=== PATIENT | male | born 1990 | race Caucasian/White ===

== ENCOUNTER 2022-07-26 12:21 | Emergency (ER) | payer OTHER ==
[2022-07-26 12:34] LABS: Urine Blood Trace-intact (Negative); Urine Glucose Negative (Negative); Urine Protein 1+ (Negative); Urine Specific Gravity 1.025 (1.005-1.030)
[2022-07-26] MEDS ORDERED: ONDANSETRON 4 MG/2 ML VIAL ONE ×2 (12:47→17:40)
[2022-07-26] MEDS ORDERED: Ringers Lactate 0 ML IV ONE (12:47)
[2022-07-26 12:49] LABS: Barbiturates NEGATIVE (NEGATIVE); Benzodiazepines NEGATIVE (NEGATIVE); Cocaine NEGATIVE (NEGATIVE); METHAMPHETAM NEGATIVE (NEGATIVE); Methadone NEGATIVE (NEGATIVE); Opiates NEGATIVE (NEGATIVE); Phencyclidine NEGATIVE (NEGATIVE); THC Cannibis NEGATIVE (NEGATIVE)
[2022-07-26 14:05] LABS: Absolute Lymphocytes (CBC) 1.1 K/uL (0.7-4.9); Hematocrit 45.9 % (39.6-49.0); Lymphocytes % 8.2 % (15.3-44.8); MCV 83.7 fL (80-100); MPV 9.3 fL (7.6-11.3); RBC Red Blood Cell Count 5.48 M/uL (4.33-5.43)
[2022-07-26 14:17] LABS: Albumin 4.2 g/dL (3.4-5.0); Bilirubin Total 0.9 mg/dL (0.2-1.0); Potassium 3.6 mmol/L (3.5-5.1); Protein, Total 8.2 g/dL (6.4-8.2)
--- NOTE | 2022-07-26 14:21 | RAD REPORT ---
EXAM DESCRIPTION: CTAbdomen Pelvis W Contrast - 07/26/2022 2:13 pm CLINICAL HISTORY: Abdominal pain. abdominal pain COMPARISON: No comparisons TECHNIQUE: Biphasic CT imaging of the abdomen and pelvis was performed with 100 ml non-ionic IV cont rast. All CT scans are performed using dose optimization technique as appropriate and may include automated exposure control or mA/KV adjustment according to patient size. FINDINGS: The lung bases are clear.Small hiatal hernia. The liver, spleen, pancreas, adrenal glands and kidneys are within normal limits. No bowel obstruction, free air, free fluid or abscess. The appendix is normal. No evidence of signi ficant lymphadenopathy. No suspicious bony findings. IMPRESSION: No acute intra-abdominal or pelvic finding.
[2022-07-26] MEDS ORDERED: Ringers Lactate 1,000 ML IV ONE ×2 (14:47→15:35)
[2022-07-26] MEDS ORDERED: METOCLOPRAMIDE 10 MG/2mL INJ ONE (14:59)
[2022-07-26] MEDS ORDERED: DIPHENHYDRAMINE 50 MG/ML VIAL ONE (14:59)
[2022-07-26] MEDS ORDERED: NA CHLORIDE 0.9% 250 ML ONE (15:00)
[2022-07-26 16:37] LABS: Blood Gas Oxyhemoglobin 95.1 % (94-97); Blood O2 Saturation 97.3 % (92-98.5)
[2022-07-26] MEDS ORDERED: PROMETHAZINE INJ 25 MG/ML AMP ONE ×2 (18:10→21:50)
[2022-07-26 18:20] LABS: ALT/SGPT 20 U/L (12-78); AST/SGOT 15 U/L (15-37); Albumin 3.5 g/dL (3.4-5.0); Alkaline Phosphatase 62 U/L (45-117); BUN Blood Urea Nitrogen 8 mg/dL (7-18); Bicarbonate 20 mmol/L (21-32); Bilirubin Direct 0.1 mg/dL (0-0.2); Bilirubin Total 0.7 mg/dL (0.2-1.0); Glomerular Filtration Rate 96 ml/min (=/>90); Glucose Level 135 mg/dL (74-106); Potassium 3.6 mmol/L (3.5-5.1); Protein, Total 7.1 g/dL (6.4-8.2); Protime INR 1.03; Sodium Level 140 mmol/L (136-145)
[2022-07-26 18:58] LABS: SARS-CoV-2 Antigen Rapid Res Negative (Negative)
[2022-07-26] MEDS ORDERED: KETOROLAC 30 MG/ML INJ ONE (19:54)
--- NOTE | 2022-07-26 20:15 | ER ---
Nurse's Notes [facility] Name: Leonard Yuan Age: 31 yrs Sex: Male : 1990 Arrival Date: 07/26/2022 Time: 12:25 Bed 7 Private MD: Diagnosis: Vomiting;Dehydration Presentation: 07/26 12:32 Chief complaint: Patient states: abd pain, N/V that began yesterday. Coronavirus ss screen: Client denies travel out of the [place] in the last 14 days. Ebola Screen: Patient denies exposure to infectious person. Patient denies travel to an Ebola-affected area in the 21 days before illness onset. Initial Sepsis Screen: Does the patient meet any 2 criteria? No. Patient's initial sepsis screen is negative. Does the patient have a suspected source of infection? No. Patient's initial sepsis screen is negative. Risk Assessment: Do you want to hurt yourself or someone else? Patient reports no desire to harm self or others. Onset of symptoms was July 25, 2022. 12:32 Method Of Arrival: Law Enforcement: [place] [employer] 12:32 Acuity: KATHY 3 ss Triage Assessment: 12:30 General: Appears distressed, uncomfortable, Behavior is cooperative, appropriate for 3 age, anxious. Pain: Complains of pain in epigastric area, right upper quadrant and left upper quadrant Pain does not radiate. Pain currently is 9 out of 10 on a pain scale. Neuro: Level of Consciousness is awake, alert, obeys commands, Oriented to person, place, time, situation. Cardiovascular: Capillary refill < 3 seconds Patient's skin is warm and dry. Respiratory: Airway is patent Respiratory effort is even, labored. GI: Abdomen is round non-distended, Bowel sounds present X 4 quads. Reports upper abdominal pain, epigastric pain, nausea, vomiting, since 11pm last night. : No signs and/or symptoms were reported regarding the genitourinary system. Derm: No signs and/or symptoms reported regarding the dermatologic system. Musculoskeletal: No signs and/or symptoms reported regarding the musculoskeletal system. Historical: - Allergies: 13:23 No Known Allergies; eh3 - Home Meds: 13:23 None [Active]; eh3 - PMHx: 13:25 Hepatitis C; eh3 - PSHx: 13:25 Maxillofacial surgery; eh3 - Immunization history:: Adult Immunizations up to date. - Social history:: Smoking status: unknown Patient uses street drugs, K2. Screenin:29 Abuse screen: Denies threats or abuse. Denies injuries from another. Nutritional eh3 screening: No deficits noted. Tuberculosis screening: No symptoms or risk factors identified. Fall Risk None identified. Assessment: 13:29 Reassessment: Patient and/or family updated on plan of care and expected duration. Pain eh3 level reassessed. Patient is alert, oriented x 3, equal unlabored respirations, skin warm/dry/pink. See triage assessment. 14:30 Reassessment: Patient and/or family updated on plan of care and expected duration. Pain eh3 level reassessed. Patient is alert, oriented x 3, equal unlabored respirations, skin warm/dry/pink. 15:29 Reassessment: Patient and/or family updated on plan of care and expected duration. Pain eh3 level reassessed. Patient is alert, oriented x 3, equal unlabored respirations, skin warm/dry/pink. 19:39 General: Appears in no apparent distress. Behavior is calm, cooperative, appropriate tw5 for age, Reports "I been vomiting a lot, so my stomach just really hurts.". Pain: Complains of pain in xiphoid area and mid-sternal area Pain currently is 6 out of 10 on a pain scale. Neuro: Level of Consciousness is awake, alert, obeys commands. Respiratory: Airway is patent Trachea midline Respiratory effort is even, unlabored. GI: Reports nausea. 21:00 Reassessment: Patient appears in no apparent distress at this time. Patient and/or jb4 family updated on plan of care and expected duration. Pain level reassessed. Patient is alert, oriented x 3, equal unlabored respirations, skin warm/dry/pink. 22:20 Reassessment: Patient appears in no apparent distress at this time. Patient and/or jb4 family updated on plan of care and expected duration. Pain level reassessed. Patient is alert, oriented x 3, equal unlabored respirations, skin warm/dry/pink. Vital Signs: 12:30 BP 103 / 77; Pulse 54; Resp 20; Pulse Ox 99% on R/A; Weight 79.38 kg; Height 5 ft. 10 eh3 in. (177.80 cm); Pain 9/10; 13:56 BP 122 / 77; Pulse 53; Resp 16; Pulse Ox 100% on R/A; Pain 8/10; ld1 14:30 BP 117 / 75; Pulse 60; Resp 18; Pulse Ox 100% on R/A; eh3 15:00 BP 106 / 61; Pulse 67; Resp 18; Pulse Ox 100% on R/A; eh3 16:26 Temp 99.3(O); ld1 17:06 BP 90 / 50; Pulse 56; Resp 11; Pulse Ox 100% on R/A; ld1 17:30 BP 118 / 66; Pulse 71; Resp 18; Pulse Ox 100% ; eh3 18:43 BP 110 / 70; Pulse 92; Resp 22; Pulse Ox 99% on R/A; eh3 19:39 BP 97 / 62; Pulse 61; Resp 10; Pulse Ox 99% on R/A; Pain 6/10; tw5 21:00 BP 109 / 67; Pulse 82; Resp 20; Pulse Ox 99% on R/A; jb4 22:00 BP 112 / 77; Pulse 62; Resp 11; Pulse Ox 99% on R/A; jb4 12:30 Body Mass Index 25.11 (79.38 kg, 177.80 cm) 3 ED Course: 12:25 Patient arrived in ED. ld1 12:28 Molly Erickson, SUSAN is Primary Nurse. eh3 12:28 Felipe Kaminski PA is PHCP. [facility] [place] 12:28 Frankie Escoto MD is Attending Physician. [facility] [place] 12:30 No provider procedures requiring assistance completed. Missed attempt(s): 20 gauge in eh3 left antecubital area. Bleeding controlled, band aid applied, catheter tip intact. 12:30 Arm band placed on left wrist. eh3 12:30 Patient has correct armband on for positive identification. Bed in low position. Call [facility] light in reach. Side rails up X2. Security at bedside. Client placed on continuous cardiac and pulse oximetry monitoring. NIBP monitoring applied. 12:32 Triage completed. ss 12:37 UDS Sent. ld1 13:55 Inserted saline lock: 22 gauge in left antecubital area, using aseptic technique. Blood ss collected. 17:42 Inserted saline lock: 18 gauge in left EJ, using aseptic technique. Blood collected. ld1 Inserted by Dr. Escoto. 18:04 initiated transfer to [facility] managed care. bd 19:13 Acetaminophen Sent. tw5 19:13 Basic Metabolic Panel Sent. tw5 19:13 ETOH Level Sent. tw5 19:13 Hepatic Function Sent. tw5 19:13 PT-INR Sent. tw5 19:14 Ptt, Activated Sent. tw5 19:14 Salicylate Sent. tw5 19:14 Osmolality, Serum Sent. tw5 19:14 SARS RAPID Sent. tw5 19:39 Noise minimized. Lights dimmed. Warm blanket given. tw5 19:39 Security at bedside. tw5 22:25 Patient transferred, IV remains in place. jb4 Administered Medications: 13:55 Drug: Zofran (Ondansetron) 4 mg Route: IVP; Site: left antecubital; ld1 14:31 Follow up: Response: Nausea unchanged eh3 13:56 Drug: Lactated Ringers Solution 1000 ml Route: IV; Rate: 1000 bolus; Site: left ld1 antecubital; 14:54 Drug: diphenhydrAMINE 25 mg Route: IVP; Site: left antecubital; ld1 15:49 Follow up: Response: No adverse reaction eh3 14:54 Drug: NS 0.9% 250 ml Route: IV; Rate: bolus; Site: left antecubital; ld1 14:55 Drug: Reglan (metoCLOPramide) 20 mg Route: IVP; Site: left antecubital; ld1 15:49 Follow up: Response: Vomiting decreased eh3 15:49 Drug: Lactated Ringers Solution 1000 ml Route: IV; Rate: 1000 bolus; Site: left eh3 antecubital; 17:15 Drug: Zofran (Ondansetron) 4 mg Route: IVP; Site: left antecubital; ld1 18:04 Follow up: Response: Nausea unchanged ld1 18:04 Drug: Phenergan (promethazine) 12.5 mg Route: IVP; Site: left antecubital; ld1 19:47 Drug: Ketorolac 30 mg Route: IVP; Site: left antecubital; tw5 22:27 Follow up: Response: No adverse reaction; Marked relief of symptoms jb4 21:00 Drug: NS 0.9% 1000 ml {Note: Left EJ.} Route: IV; Rate: 1 bolus; Site: Other; jb4 22:27 Follow up: Response: No adverse reaction; IV Status: Completed infusion; IV Intake: jb4 1000ml 21:59 Drug: Phenergan (promethazine) 12.5 mg Route: IM; Site: right gluteus; jb4 22:27 Follow up: Response: No adverse reaction; Marked relief of symptoms jb4 Medication: 13:29 VIS not applicable for this client. eh3 Intake: 22:27 IV: 1000ml; Total: 1000ml. jb4 Outcome: 20:15 ER care complete, transfer ordered by . lisa 22:25 Transferred by ground EMS [facility]. to [facility], jb4 Transfer form completed. X-rays sent w/ patient. 22:25 Condition: stable 22:25 Discharge instructions given to patient, Instructed on the need for transfer, Demonstrated understanding of instructions. 22:27 Patient left the ED. jb4 Signatures: Brunilda Resendiz Joel, PA PA jmm Smirch, Shelby, RN RN Froy Rivas RN RN jb4 Martha Spring, SUSAN RN adelina1 Shanti Tai 5 Molly Erickson, SUSAN RN 3
--- NOTE | 2022-07-26 20:16 | EDPHYS ---
Physician Documentation [facility] Name: Leonard Yuan Age: 31 yrs Sex: Male : 1990 Arrival Date: 07/26/2022 Time: 12:25 Bed 7 Private MD: ED Physician Frankie Escoto HPI: 07/26 15:59 This 31 yrs old Male presents to ER via Law Enforcement with complaints of abdominal jmm pain. 15:59 The patient presents to the emergency department with nausea, vomiting, diarrhea, jmm abdominal pain, of the right upper quadrant and right lower quadrant. 15:59 Onset: The symptoms/episode began/occurred acutely, yesterday. This is a 31-year-old jmm male with history of hepatitis C the presents emerged part with complaints of abdominal pain vomiting diarrhea which began last night. Patient states previously during the day he had smoked K2 which he was concerned he may have been laced with some other substance. Patient has had multiple episodes of vomiting and diarrhea since also complains of chest pain and vomiting. Historical: - Allergies: 13:23 No Known Allergies; eh3 - Home Meds: 13:23 None [Active]; eh3 - PMHx: 13:25 Hepatitis C; eh3 - PSHx: 13:25 Maxillofacial surgery; eh3 - Immunization history:: Adult Immunizations up to date. - Social history:: Smoking status: unknown Patient uses street drugs, K2. ROS: 15:59 Constitutional: Positive for body aches, chills. jmm 15:59 Abdomen/GI: Positive for abdominal pain, vomiting, diarrhea. 15:59 All other systems are negative. Exam: 15:59 Constitutional: This is a well developed, well nourished patient who is awake, alert, jmm and in no acute distress. Head/Face: atraumatic. Eyes: EOMI, no conjunctival erythema appreciated ENT: Moist Mucus Membranes Neck: Trachea midline, Supple Chest/axilla: Normal chest wall appearance and motion. 15:59 Back: Normal ROM Skin: General appearance color normal MS/ Extremity: Moves all extremities, no obvious deformities appreciated, no edema noted to the lower extremities Neuro: Awake and alert Psych: Behavior is normal, Mood is normal, Patient is cooperative and pleasant 15:59 Cardiovascular: Rate: tachycardic, Rhythm: regular. 15:59 Respiratory: the patient does not display signs of respiratory distress, Respirations: normal, Breath sounds: are clear throughout. 15:59 Abdomen/GI: Inspection: abdomen appears normal, Bowel sounds: normal, Palpation: soft, moderate abdominal tenderness, in all quadrants. Vital Signs: 12:30 BP 103 / 77; Pulse 54; Resp 20; Pulse Ox 99% on R/A; Weight 79.38 kg; Height 5 ft. 10 eh3 in. (177.80 cm); Pain 9/10; 13:56 BP 122 / 77; Pulse 53; Resp 16; Pulse Ox 100% on R/A; Pain 8/10; ld1 14:30 BP 117 / 75; Pulse 60; Resp 18; Pulse Ox 100% on R/A; eh3 15:00 BP 106 / 61; Pulse 67; Resp 18; Pulse Ox 100% on R/A; eh3 16:26 Temp 99.3(O); ld1 17:06 BP 90 / 50; Pulse 56; Resp 11; Pulse Ox 100% on R/A; ld1 17:30 BP 118 / 66; Pulse 71; Resp 18; Pulse Ox 100% ; eh3 18:43 BP 110 / 70; Pulse 92; Resp 22; Pulse Ox 99% on R/A; eh3 19:39 BP 97 / 62; Pulse 61; Resp 10; Pulse Ox 99% on R/A; Pain 6/10; tw5 21:00 BP 109 / 67; Pulse 82; Resp 20; Pulse Ox 99% on R/A; jb4 22:00 BP 112 / 77; Pulse 62; Resp 11; Pulse Ox 99% on R/A; jb4 12:30 Body Mass Index 25.11 (79.38 kg, 177.80 cm) eh3 Procedures: 17:51 Peripheral line: by aseptic technique a peripheral line was placed in the left external lanie jugular vein. MDM: 12:31 Patient medically screened. lisa 20:14 Data reviewed: vital signs, nurses notes. Counseling: I had a detailed discussion with lisa the patient and/or guardian regarding: the historical points, exam findings, and any diagnostic results supporting the discharge/admit diagnosis, lab results, radiology results, the need to transfer to another facility. ED course: I discussed the patient [facility] Inpatient. Accepted the patient for transfer. . 07/26 12:25 Order name: CBC with Diff; Complete Time: 14:22 [facility] 07/26 12:25 Order name: CMP; Complete Time: 14:22 [facility] 07/26 12:25 Order name: Lipase; Complete Time: 14:22 [facility] 07/26 12:32 Order name: Troponin HS; Complete Time: 14:22 [facility] 07/26 12:32 Order name: UDS [facility] 07/26 12:34 Order name: Urine Dipstick-Ancillary; Complete Time: 12:35 [facility] 07/26 12:50 Order name: Urine Drug Screen; Complete Time: 13:05 [facility] 07/26 14:12 Order name: CREATININE WHOLE BLOOD; Complete Time: 14:22 [facility] 07/26 16:08 Order name: Acetaminophen [facility] 07/26 16:08 Order name: Basic Metabolic Panel [facility] 07/26 16:08 Order name: ETOH Level [facility] 07/26 16:08 Order name: Hepatic Function [facility] 07/26 16:08 Order name: PT-INR [facility] 07/26 16:08 Order name: Ptt, Activated [facility] 07/26 13:29 Order name: CT Abd/Pelvis - IV Contrast Only [facility] 07/26 16:08 Order name: Salicylate [facility] 07/26 16:14 Order name: Osmolality, Serum [facility] 07/26 16:14 Order name: ABG [facility] 07/26 16:47 Order name: ABG Arterial Blood Gas; Complete Time: 17:04 [facility] 07/26 16:56 Order name: BMP: Repeat after IVF [facility] 07/26 17:57 Order name: SARS RAPID [facility] 07/26 18:20 Order name: Protime (+INR); Complete Time: 18:37 [facility] 07/26 18:20 Order name: PTT, Activated Partial Thromb; Complete Time: 18:37 [facility] 07/26 18:21 Order name: Basic Metabolic Panel; Complete Time: 18:37 [facility] 07/26 18:21 Order name: Liver (Hepatic) Function; Complete Time: 18:37 [facility] 07/26 18:21 Order name: Acetaminophen Level; Complete Time: 18:37 [facility] 07/26 18:21 Order name: Alcohol Serum/Plasma; Complete Time: 18:37 [facility] 07/26 18:32 Order name: Osmolality, Serum; Complete Time: 18:37 [facility] 07/26 18:36 Order name: Salicylates Level; Complete Time: 18:37 [facility] 07/26 18:58 Order name: SARS-COV-2 Antigen Rapid; Complete Time: 19:42 [facility] 07/26 12:25 Order name: IV Saline Lock; Complete Time: 13:56 [facility] 07/26 12:25 Order name: Labs collected and sent; Complete Time: 13:56 [facility] 07/26 12:25 Order name: Urine Dipstick-Ancillary (obtain specimen); Complete Time: 12:37 [facility] 07/26 12:32 Order name: EKG - Nurse/Tech; Complete Time: 13:59 [facility] 07/26 14:22 Order name: CT; Complete Time: 14:22 [facility] 07/26 16:08 Order name: EKG; Complete Time: 16:08 [facility] Administered Medications: 13:55 Drug: Zofran (Ondansetron) 4 mg Route: IVP; Site: left antecubital; ld1 14:31 Follow up: Response: Nausea unchanged eh3 13:56 Drug: Lactated Ringers Solution 1000 ml Route: IV; Rate: 1000 bolus; Site: left ld1 antecubital; 14:54 Drug: diphenhydrAMINE 25 mg Route: IVP; Site: left antecubital; ld1 15:49 Follow up: Response: No adverse reaction eh3 14:54 Drug: NS 0.9% 250 ml Route: IV; Rate: bolus; Site: left antecubital; ld1 14:55 Drug: Reglan (metoCLOPramide) 20 mg Route: IVP; Site: left antecubital; ld1 15:49 Follow up: Response: Vomiting decreased eh3 15:49 Drug: Lactated Ringers Solution 1000 ml Route: IV; Rate: 1000 bolus; Site: left eh3 antecubital; 17:15 Drug: Zofran (Ondansetron) 4 mg Route: IVP; Site: left antecubital; ld1 18:04 Follow up: Response: Nausea unchanged ld1 18:04 Drug: Phenergan (promethazine) 12.5 mg Route: IVP; Site: left antecubital; ld1 19:47 Drug: Ketorolac 30 mg Route: IVP; Site: left antecubital; tw5 22:27 Follow up: Response: No adverse reaction; Marked relief of symptoms jb4 21:00 Drug: NS 0.9% 1000 ml {Note: Left EJ.} Route: IV; Rate: 1 bolus; Site: Other; jb4 22:27 Follow up: Response: No adverse reaction; IV Status: Completed infusion; IV Intake: jb4 1000ml 21:59 Drug: Phenergan (promethazine) 12.5 mg Route: IM; Site: right gluteus; jb4 22:27 Follow up: Response: No adverse reaction; Marked relief of symptoms jb4 Disposition Summary: 07/26/22 20:15 Transfer Ordered Transfer Location: [facility] Reason: Higher level of care jmm Condition: Stable jmm Problem: new jmm Symptoms: have improved jmm Accepting Physician: [facility] Physician(07/26/22 22:27) joan Diagnosis - Vomiting jmm - Dehydration jmm Forms: - Medication Reconciliation Form jmm - SBAR form jmm Signatures: Dispatcher [employer] EDFrankie Vu MD MD cha Mickail, Joel, PA PA Froy Sanchez, RN RN jb4 Shemar Flores DO DO ms3 Martha Spring RN RN ld1 Shanti Tai tw5 Molly Erickson, SUSAN RN eh3 Corrections: (The following items were deleted from the chart) 16:08 16:08 Suicide Screening ([place]) ordered. lisa gonzalez 22: 20:15 [facility] Physician lisa jbLoyd
[2022-07-26] MEDS ORDERED: NA CHLORIDE 0.9% 1,000 ML ONE (21:00)
--- NOTE | 2022-07-27 13:39 | EKG ---
Test Date: 2022-07-26 Test Time: 14:03:05 Social And Political Studies Professor: ANA MEASUREMENT RESULTS: Intervals: Rate: 56 MS: 122 QRSD: 86 QT: 436 QTc: 420 [place]: P: 26 MS: 122 QRS: 46 T: 12 INTERPRETIVE STATEMENTS: Sinus bradycardia with sinus arrhythmia Otherwise normal ECG Compared to ECG 07/26/2022 14:02:33 Atrial premature complex(es) no longer present Short MS interval no longer present Electronically Signed On 07-27-22 13:38:00 CDT by Eduardo Babin
--- NOTE | 2022-07-27 13:39 | EKG ---
Test Date: 2022-07-26 Test Time: 14:02:33 [employer]ugger Operator: ANA MEASUREMENT RESULTS: Intervals: Rate: 58 NC: 104 QRSD: 84 QT: 438 QTc: 429 [place]: P: 36 NC: 104 QRS: 48 T: 16 INTERPRETIVE STATEMENTS: Sinus bradycardia with short NC with premature supraventricular complexes Otherwise normal ECG No previous ECG available for comparison Electronically Signed On 07-27-22 13:38:07 CDT by Eduardo Babin
[2022-07-28 14:48] VITALS: TEMP 99.3
[2022-07-28 16:04] VITALS: BP 90/50; O2SAT 100
== END 2022-07-26 22:27 | disposition short-term general hospital (02) ==
LOC: ER 12:21
PROC: 05HQ33Z Insertion of Infusion Device into Left External Jugular Vein, Percutaneous Approach (ICD-10-PCS; principal; 2022-07-26)
DX: R11.10 Vomiting, unspecified (principal); E86.0 Dehydration; R10.31 Right lower quadrant pain; R10.11 Right upper quadrant pain; Z20.822 Contact with and (suspected) exposure to COVID-19
CPT/HCPCS: 96361; 93005 ×2; 85025; 80048; 36415; 80320; 80329 ×2; 85610; 82565; 80076; 85730; 81003; 84484; 83690; 80053; 80307; 83930; 74177; 82805; 96375; 96372; 96374; 99285; 87811; 36569; Q9967; J2405 ×2; J1200; J2550; J2765; J7030; J7050; J7120